=== PATIENT | male | born 1980 | race Caucasian/White ===

== ENCOUNTER 2017-04-01 03:26 | Emergency (ER) | payer OTHER ==
[~2017-04-01] VITALS: Ht 188 cm; Wt 110.0 kg
[2017-04-01 03:37] VITALS: Ht 188 cm; Wt 110.0 kg
[2017-04-01] MEDS ORDERED: KETOROLAC 60 MG INJ IM STA (07:05)
[2017-04-01] MEDS ORDERED: PEN500 PO (07:14)
[2017-04-01] MEDS ORDERED: TRAM50TA2 PO (07:14)
--- NOTE | 2017-04-01 07:19 | ERD ---
ER Documentation Chief Complaint Date/Time DATE: 04/01/17 TIME: 07:17 Chief Complaint tooth pain upper and lower on left side HPI 36-year-old male patient with no significant past medical history presents to the ED complaining of left tooth ache that started yesterday morning. Patient reports that he has been taking Advil and ibuprofen without relief of his pain. Denies any change in phonation. Denies any teeth breaking. Denies swallowing and aspirating any teeth. Denies any chest pain, shortness of breath , abdominal pain, dysphagia, odynophagia ROS All systems reviewed and are negative except as per history of present illness. Medications Home Meds Active Scripts Tramadol HCl (Tramadol HCl) 50 Mg Tablet, 50 MG PO Q6, #20 TAB Prov:LU COLINDRES PA-C 04/01/17 Penicillin V Potassium* (Penicillin V K*) 500 Mg Tab, 500 MG PO QID for 7 Days, TAB Prov:LU COLINDRES PA-C 04/01/17 Allergies Allergies: Coded Allergies: No Known Allergy (Unverified , 04/01/17) PMhx/Soc Medical and Surgical Hx: pt denies Medical Hx, pt denies Surgical Hx Hx Alcohol Use: Yes Hx Substance Use: No Hx Tobacco Use: No Smoking Status: Never smoker Physical Exam Vitals Vital Signs Date Time Temp Pulse Resp B/P Pulse Ox O2 Delivery O2 Flow Rate FiO2 04/01/17 03:37 97.2 55 18 138/95 99 Physical Exam Const: [id number], well-nourished. In no acute distress. Head: Atraumatic, normocephalic Eyes: Normal Conjunctiva without injection. No purulent discharge. PERRL. EOMI ENT: Normal external ear. Ear canal without erythema. Tympanic membrane pearly campbell without effusion or bulging. Nasal canal clear with normal turbinates. Moist oropharynx without tonsillar exudates. Tender to palpation of teeth #11 and #12. Non-erythematous pharynx. Uvula midline. No drooling. No trismus. Neck: Full range of motion. No meningismus. No cervical lymphadenopathy. Resp: Clear to auscultation bilaterally. No wheezing, rhonchi, rales, or crackles. No accessory muscle use. No retractions. Cardio: Regular rate and rhythm. No murmurs, rubs or gallops. Abd: Soft, non tender, non distended. Normal bowel sounds. No palpable masses. No rebound tenderness. No guarding. Skin: No petechiae or rashes Back: No midline tenderness. No CVA tenderness. Ext: No cyanosis, or edema. Neur: Awake and alert. Psych: Normal Mood and Affect Results 24 hrs Current Medications Medications (Trade) Dose Ordered Sig/Johny Route PRN Reason Start Time Stop Time Status Last Admin Dose Admin Ketorolac Tromethamine (Toradol) 60 mg ONCE STAT IM 04/01/17 07:05 04/01/17 07:07 DC 04/01/17 07:13 Procedures/MDM 28-year-old male patient with no significant past medical history presents the ED complaining of the left toothache. Patient is afebrile and nontoxic- appearing. Patient has normal vital signs. Patient likely has tooth decay noted and secondary pain. Patient instructed to follow-up with a dentist. Patient's physical exam include lungs which were clear to auscultation and a normal pulse oximetry. Bilateral ears pearly light. No tenderness to palpation of tragus or mastoid. Low suspicion for mastoiditis, otitis externa, otitis media. Patient is speaking in full sentences. There is a low suspicion for pneumonia, epiglottitis, croup, sinusitis, peritonsillar abscess, hands foot mouth disease, scarlet fever, Kawasaki disease, Vickey's angina, retropharyngeal abscess, meningitis, sepsis, acute abdomen or other emergent conditions. Discharge medications: Tramadol, Penicillin VK Follow up with primary care physician in 1-2 days. Instructed patient to return to the ED sooner for any worsening symptoms. Patient's questions were answered. Patient understood and agreed with discharge plan. Patient discharged stable. Departure Diagnosis: Primary Impression: Toothache Condition: Stable Patient Instructions: Understanding Tooth Decay, Dental Pain Referrals: COMMUNITY CLINICS YOU HAVE RECEIVED A MEDICAL SCREENING EXAM AND THE RESULTS INDICATE THAT YOU DO NOT HAVE A CONDITION THAT REQUIRES URGENT TREATMENT IN THE EMERGENCY DEPARTMENT. FURTHER EVALUATION AND TREATMENT OF YOUR CONDITION CAN WAIT UNTIL YOU ARE SEEN IN YOUR DOCTORS OFFICE WITHIN THE NEXT 1-2 DAYS. IT IS YOUR RESPONSIBILITY TO MAKE AN APPOINTMENT FOR FOLOW-UP CARE. IF YOU HAVE A PRIMARY DOCTOR --you should call your primary doctor and schedule an appointment IF YOU DO NOT HAVE A PRIMARY DOCTOR YOU CAN CALL OUR PHYSICIAN REFERRAL HOTLINE AT IF YOU CAN NOT AFFORD TO SEE A PHYSICIAN YOU CAN CHOSE FROM THE FOLLOWING [facility] [address] [place] [facility] [address] [place] [facility] [address] [facility] [address] [facility] [address] [facility] [address] [facility]. [facility] YOU HAVE RECEIVED A MEDICAL SCREENING EXAM AND THE RESULTS INDICATE THAT YOU DO NOT HAVE A CONDITION THAT REQUIRES URGENT TREATMENT IN THE EMERGENCY DEPARTMENT. FURTHER EVALUATION AND TREATMENT OF YOUR CONDITION CAN WAIT UNTIL YOU ARE SEEN IN YOUR DOCTORS OFFICE WITHIN THE NEXT 1-2 DAYS. IT IS YOUR RESPONSIBILITY TO MAKE AN APPOINTMENT FOR FOLOW-UP CARE. IF YOU HAVE A PRIMARY DOCTOR --you should call your primary doctor and schedule and appointment IF YOU DO NOT HAVE A PRIMARY DOCTOR YOU CAN CALL OUR PHYSICIAN REFERRAL HOTLINE AT . IF YOU CAN NOT AFFORD TO SEE A PHYSICIAN YOU CAN CHOSE FROM THE FOLLOWING [facility]: [facility] [address] [place] [address] [facility] [address] [place] [address] [facility] + [facility] [address] [place] [address] [facility] DENTIST ([facility] walk in clinic) Additional Instructions: FOLLOW UP WITH A DENTIST TOMORROW FOR FURTHER EVALUATION AND TREATMENT.Return to this facility if you are not improving as expected - FEVER, NAUSEA, VOMITNG, INCREASED REDNESS/SWELLING, ETC. LU COLINDRES PA-C Apr 01, 2017 07:19
== END 2017-04-01 07:35 | disposition home or self-care (01) ==
LOC: FTE 03:26
DX: K08.89 Other specified disorders of teeth and supporting structures (principal)
CPT/HCPCS: 96372; J1885